=== PATIENT | male | born 1950 | race Caucasian/White ===

== ENCOUNTER → 2016-10-01 | Outpatient (CLI) | payer MEDICARE ==
[~2016-10-01] MED LIST: DEPAKOTE EXTEN500 MG PO; KEPPRA500 MG PO; THERAGRAN-M1 TAB PO; TYLENOL EXTRA500 MG PO; ZYLOPRIM100 MG PO
== END | disposition disaster alternative care site (69) ==
LOC: LGSMG 11:17
DX: R56.9 Unspecified convulsions (principal)

== ENCOUNTER 2016-12-11 18:20 | Inpatient (IN) | payer MEDICARE ==
[~2016-12-11] VITALS: Ht 190.5 cm; Wt 70.5 kg
--- NOTE | ~2016-12-11 | CON ---
PATIENT'S NAME: ROSENDO TRINH [facility] AGE: 66 Y [address] ROOM: [address] [place] [address] LOCATION: [facility] ADMIT DATE: 12/12/2016 Consultation DISCHARGE DATE: FAMILY PHYSICIAN: SIMBA MONTENEGRO MD ATTENDING PHYSICIAN: Gege Malik DATE OF CONSULTATION: 12/12/2016 REFERRING PHYSICIAN: BRENDA ALBARRAN MD TIME OF CONSULTATION: At 10:10 a.m. REASON FOR CONSULT: Right-sided hemiparesis. HISTORY OF PRESENT ILLNESS: This is a 66-year-old male, known to the Neurology Clinic for treatment of seizures. This 66-year-old, male, has a history of glioblastoma multiforme, status post excision and radiation with no apparent residual disease. He does have a slight residual aphasia. The patient presented to the Neurological Clinic today in a wheelchair with his family. I immediately examined him and his right side had literally no strength. He also had no fluent language skills and some word finding difficulties. These symptoms began 2 weeks ago. The patient was taken to MRI which did show a left posterior limb internal capsule stroke. The stroke appears ischemic and subacute. The patient was admitted to the hospital for an ischemic stroke workup. REVIEW OF SYSTEMS: All systems have been reviewed and are negative except for the positives as listed in the HPI. PAST MEDICAL HISTORY: 1. Gout. 2. Glioblastoma multiforme. 3. Seizures. SURGICAL HISTORY: Resection of a glioblastoma multiforme. CURRENT MEDICATIONS: 1. Allopurinol. 2. Depakote. 3. Keppra. PATIENT'S NAME: ROSENDO TRINH [facility] AGE: 66 Y [address] ROOM: [address] [place] [id number] LOCATION: [facility] ADMIT DATE: 12/12/2016 Consultation DISCHARGE DATE: FAMILY PHYSICIAN: SIMBA MONTENEGRO MD ATTENDING PHYSICIAN: Gege Malik SOCIAL HISTORY: The patient was a past smoker, but has no other toxic habits and lives with his . His daughter stays with them to help manage medications. FAMILY HISTORY: Reviewed and is noncontributory. PHYSICAL EXAMINATION: VITAL SIGNS: Temperature 97.7, pulse 57, respirations 12, blood pressure 122/70, and saturating 100% on room air. GENERAL: This appears as a well-developed, well-nourished, elderly male, in no acute distress. HEENT: Head is normocephalic and atraumatic. Pupils are equal and reactive to light and accommodation. LYMPHATIC: No cervical lymphadenopathy. LUNGS: Clear to auscultation. HEART: Regular with no murmurs, rubs, or gallops. NECK: No nuchal rigidity noted. No carotid bruits auscultated. GI: Abdomen is soft, nontender, and nondistended. VASCULAR: He has 2+ pedal pulses and venous staining bilaterally. His NIH stroke scale is as follows: Level of consciousness, 0. Current month and age, 1. Open and close eyes, 0. Best gaze, 0. Visual field testing, 0. Facial paresis, 1. Left arm, 0. Right arm, 2. Left leg, 0. Right leg, 1. Limb ataxia, 1. Sensory, 1. Language, 1. Dysarthria, 1. Extinction and inattention, 0, for a total Scale of 9. DIAGNOSTICS: The patient has had an MRI previous to admission to the hospital. The MRI demonstrated a small acute or subacute ischemic infarct in the posterior limb left and on internal capsule, which explains the right hemiparesis. There are other chronic changes of the left temporal tumor resection with a stable appearance, without evidence of tumor recurrence. ASSESSMENT AND PLAN: 1. Ischemic cerebrovascular accident. We will start an aspirin as there is no evidence of hemorrhage on this MRI. The patient had not been on any antithrombotic. We will get a lipid profile to evaluate and start statin therapy if needed. We will get an echocardiogram to evaluate his heart. We would like to get an MRA to look at the vessels in his heart. We will get a carotid ultrasound to evaluate for possible stenosis. We will involve Speech, PT, and OT to evaluate the patient and treat as necessary. We will get Dr. Henry to see the patient and value his input on rehabilitation. The evaluation and plan for this patient was developed with Dr. Oseguera. We would like to thank you for the opportunity to take care of this patient. PATIENT'S NAME: ROSENDO TRINH [facility] AGE: 66 Y [address] ROOM: [address] [place] [address] LOCATION: [facility] ADMIT DATE: 12/12/2016 Consultation DISCHARGE DATE: FAMILY PHYSICIAN: SIMBA MONTENEGRO MD ATTENDING PHYSICIAN: Gege Malik If you have any questions, please do not hesitate to ask us. KALI HINOJOSA APRN FOR LORETTA OSEGUERA MD PP/modl /[id number] d: 12/13/16 0137 t: 12/19/16 1743, CONSULTATION REPORT
--- NOTE | ~2016-12-11 | CON ---
PATIENT'S NAME: ROSENDO TRINH [facility] AGE: 66 Y [address] ROOM: [place] [address] LOCATION: [facility] ADMIT DATE: 12/12/2016 Consultation DISCHARGE DATE: FAMILY PHYSICIAN: SIMBA MONTENEGRO MD ATTENDING PHYSICIAN: Gege Malik REFERRING PHYSICIAN: BRENDA ALBARRAN MD A consult for Dr. Duval/Dr. Malik. HISTORY OF PRESENT ILLNESS: This pleasant, 66-year-old gentleman, who is at the present time, telling me that he lives alone and takes care of his needs. He was admitted on 12/11/2016 with right-sided weakness and right facial droop of about 2 weeks' duration. There is history of brain tumor, and possibly this is a recurrence ? History of focal seizures back in August 2016. Status post history of biopsy of glioblastoma multiforme. At that time, he had sudden onset of right hemiparesis which resolved spontaneously. 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 PHYSICAL EXAMINATION: Now, alert. Not well oriented to place, time and person. Can correct himself on and off with repeated cuing, but not easily. He has right facial droop, but his voice is clear and not wet, and he does not attend well to the right side also with right temporary visual neglect cut. Tongue and soft palate are moving symmetrical on both sides. Voice is clear and not wet. He has marked weakness of the right upper extremity and is also weak in the right lower extremity distally more than proximally, and dorsiflexors more than plantar flexes. Sensation is slightly decreased on the right side. Deep tendon reflexes are present, 1+ throughout. He has good bowel and bladder control so far. MEDICATIONS: He is, at the present time, on the following medications: 1. Aspirin. 2. Keppra. 3. Depakote. 4. Zofran. PATIENT'S NAME: ROSENDO TRINH [facility] AGE: 66 Y [address] ROOM: [address] [place] [id number] LOCATION: [facility] ADMIT DATE: 12/12/2016 Consultation DISCHARGE DATE: FAMILY PHYSICIAN: SIMBA MONTENEGRO MD ATTENDING PHYSICIAN: Gege Malik 5. Zyloprim. 6. Zofran. 7. Tylenol. ASSESSMENT AND PLAN: We will initiate on PT, OT, and speech. We will brace as needed, please see the orders. Also, we will start him on E-stimulation on specific muscles, please see the orders again. We will watch closely. When stable, provided he can tolerate intensive rehabilitation, I will take him to GIRP/rehab unit for intensive rehabilitation of about 3 to 4 weeks, aiming to discharge home at [facility]. Follow on outpatient basis. All the above was explained to him. He verbalized understanding and agreement. Thank you for this referral. He has been initiated on PT, OT, and speech. See the orders. MD GABRIELLA ARIASS/modl /[id number] d: 12/12/16 1640 t: 12/15/16 1222, CONSULTATION REPORT
--- NOTE | ~2016-12-11 | ECHO ---
Transthoracic Echocardiography Report (TTE) Demographics Patient Name ROSENDO TRINH Date of Study 12/15/2016 Patient Number [id number] Visit Number [id number] Date of 1950 Room Number G6228 Gender Male Number Age 66 year(s) Referring David Wood Silk Spotter Raisa Ordaz [place], Physician Osman Childers RVT PARTICIPANT ADMINISTRATOR Physician Interpreting Tamara Xavier MD Clinical Partner Physician Supervising Ordering Osman Childers MD/MLP Physician PARTICIPANT ADMINISTRATOR Nurse Stress Lvn Lpn Conclusions Contractility Score Summary Normal Left Ventricular contractility was noted. Summary The estimated left ventricular ejection fraction is 60%. Mild assymetric septal left ventricular hypertrophy. Diastolic assessment reveals Grade I diastolic dysfunction. The right atrium is mildly dilated. Procedure Type of Study TTE procedure:2D Echocardiogram. Procedure Date Date: 12/15/2016 Start: 11:39 AM Study Location: Inpatient Portable Technical Quality: Adequate visualization Indications:CVA. Appropriate Use Criteria: 9 Patient Status: Routine Contrast Medium: Bubble Study. Amount - 9 ml HR: 66 bpm BP: 107/62 mmHg M-Mode/2D Measurements LV Diastolic Dimension: 2.77 cm LV Systolic Dimension: 2.05 cm LV Septum Diastolic: 1.09 cm LV PW Diastolic: 0.95 cm Cardiac Output: 3.19 l/min LA Dimension: 2.7 cm LVOT: 2 cm LVOT VTI: 15.4 cm RV Base: 3.35 cm LV Stroke volume: 48.36 ml RV Length: 5.31 cm Doppler Measurements AV Peak Velocity: 0.87 m/s MV Peak E-Wave: 0.5 m/s AV Peak Gradient: 3.05 mmHg MV Peak A-Wave: 0.64 m/s AV Mean Gradient: 2 mmHg MV E/A Ratio: 0.79 LVOT Peak Velocity: 0.73 m/s MV Deceleration Time: 352 msec TR Velocity:1.5 m/s PV Peak Velocity: 0.71 m/s TR Gradient:9 mmHg PV Peak Gradient: 2.03 mmHg Estimated RAP:8 mmHg Estimated PASP: 17 mmHg Estimated RVSP: 17 mmHg A' Septal Velocity: 0.07 m/s E' Septal Velocity: 0.09 m/s A' Lateral Velocity: 0.13 m/s E' Lateral Velocity: 0.1 m/s Findings Left Ventricle Mild assymetric septal left ventricular hypertrophy. Diastolic assessment reveals Grade I diastolic dysfunction. Paradoxical septal motion abnormality Right Ventricle Normal right ventricle structure and function. Left Atrium Normal left atrial size. Informed consent was obtained, bubble study was done, there is no evidence for a PFO or ASD. Right Atrium The right atrium is mildly dilated. Mitral Valve Normal mitral valve structure and function. Aortic Valve Normal aortic valve structure and function. Tricuspid Valve Trivial tricuspid regurgitation by color Doppler. Pulmonic Valve Normal pulmonic valve structure and function. Pericardial Effusion No evidence of pericardial effusion. Miscellaneous Visualized portions of the aortic root and ascending aorta appear normal in size. Pleural Effusion No evidence of pleural effusion. Contractility Score LV regional wall motion:(0-Non visualized 1-Normal 2-Hypokinesis 3-Akinesis 4-Dyskinesis 5-Aneurysm) Signature dtt: Duc Mcdonald (cardio) dtd: 12/15/16 1139 Physician Self Edit
--- NOTE | ~2016-12-11 | CON ---
PATIENT'S NAME: ROSENDO CEDILLO [facility] AGE: 66 Y [address] ROOM: [address] [place] [id number] LOCATION: [facility] ADMIT DATE: 12/12/2016 Consultation DISCHARGE DATE: FAMILY PHYSICIAN: SIMBA MONTENEGRO MD ATTENDING PHYSICIAN: Gege Malik DATE OF CONSULTATION: 12/12/2016 REFERRING PHYSICIAN: BRENDA ALBARRAN MD TIME OF CONSULT: 2:25 p.m. REASON FOR CONSULT: Abnormal MRI and right-sided weakness. HISTORY OF PRESENT ILLNESS: Rosendo Cedillo is known to us from the outpatient clinic. He was seen last in August for a possible TIA. We were called by an outlying facility for recommendations on tPA. Because he had a glioblastoma in 2008, tPA was not given. Thankfully, the symptoms resolved shortly thereafter. 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 He had a history of seizures and was on Keppra and added Depakote at that time. Yesterday, he came into the neurology office and he was in a wheelchair. His daughter and the patient both state that he has not been able to move his right side well for over two weeks. The differential diagnosis at that time were either stroke or recurrence of the glioblastoma, so he was taken to MRI somewhat on an urgent basis. After the MRI was reviewed, it looked like a posterior limb left or an internal capsule ischemic area that was subacute. He was admitted to the hospital for workup of this stroke and to evaluate for what he needs as far as rehabilitation and therapies. It was noted the patient was somewhat aphasic and had difficulties with fluidity of language at the visit also. DICTATION ENDS HERE KALI HINOJOSA APRN FOR BRENDA ALBARRAN MD PP/modl /[id number] d: 12/12/16 2253 t: 12/28/16 1629, CONSULTATION REPORT
--- NOTE | ~2016-12-11 | CON ---
PATIENT'S NAME: ROSENDO CEDILLO [facility] AGE: 66 Y [address] ROOM: [address] [address] LOCATION: [facility] ADMIT DATE: 12/12/2016 Consultation DISCHARGE DATE: FAMILY PHYSICIAN: SIMBA MONTENEGRO MD ATTENDING PHYSICIAN: Gege Malik DATE OF CONSULTATION: 12/12/2016 REFERRING PHYSICIAN: BRENDA ALBARRAN MD I personally saw the patient Rosendo Cedillo on December 12, 2016 with nurse practitioner, Miriam Brewer via Telemedicine consultation. Dee portions of the history and examination were repeated. I agree with the discussed assessment and plan of care. MD ABRAHAM CONNELLY/modl /[id number] d: t: 12/15/16 0151, CONSULTATION REPORT
--- NOTE | ~2016-12-11 | DS ---
PATIENT'S NAME: ROSENDO TRINH [facility] AGE: 66 Y [address] ROOM: [address] [address] LOCATION: [facility] ADMIT DATE: 12/12/2016 Discharge Summary DISCHARGE DATE: 12/16/2016 FAMILY PHYSICIAN: Iris Hernandez MD ATTENDING PHYSICIAN: Gege Malik [facility]RSE: This 66-year-old male was admitted with a history of right- sided weakness that seems to have gotten worse over a 2-week period. Prior to that, he had had an episode in August, which was thought to be a TIA and he spontaneously recovered and then he had an episode where he had a seizure and following that, developed Nawaf's paralysis. However, for more than 2 weeks, he has not been able to use his right side very well. The right upper extremity had always been spastic mainly because of an old stroke and he also had some weakness in his right lower extremity. However, relevant portion of his past medical history is that he had a history of glioblastoma, which was excised in 2008. An MRI of the brain was done. The MRI showed an ischemic lesion in the posterior limb of the internal capsule on the left side. He had an episode where he was aphasic and he still has problems with expressive aphasia. While in the hospital, investigation was carried out including a cardiac echo, which was normal. He also had carotid duplex studies looking at his carotids bilaterally. There was no significant stenosis of the carotids. There was no evidence of tumor or recurrence. He was seen in consultation by Dr. Henry of Rehab Services who saw him and felt to be a good candidate to be admitted to inpatient rehab. While he was in the hospital, his neurological status was stable. He had no further deterioration. He was consequently transferred to inpatient rehab service for aggressive rehabilitation. DIAGNOSIS: Left hemisphere stroke involving primarily the posterior limb of the internal capsule. MD ERLINDA NULL/lauro /[id number] d: 12/29/16 0200 t: 01/15/17 1444, DISCHARGE SUMMARY
--- NOTE | ~2016-12-11 | ENPV ---
Carotid Duplex Study Demographics Patient Name ROSENDO TRINH Date of Study 12/12/2016 Patient Number [id number] Gender Male Date of 1950 Age 66 Visit Number [id number] Height 75 Accession Number [id number] Weight 157 Referring David Wood Interpreting Alessandro Saucedo MD Physician Osman Childers Physician CHILO Physician Ordering Physician Osman Childers Outsole Cutter Machine CHILO Metal Polisher And Buffer Apprentice Roberto Alejandro T Conclusions Summary Prior study done 09/09/16- Appears unchanged from prior study. The right internal carotid artery has mild, 1-39%, plaque and stenosis. The right vertebral artery is present with antegrade flow. The left internal carotid artery has mild, 1-39%, plaque and stenosis. The left vertebral artery is present with antegrade flow. Procedure Type of Study: Cerebral:Carotid, Carotid Doppler Bilateral. Indications for Study:Stroke. Appropriate Use Criteria:9 Patient Status:Routine. Study Location:Inpatient Portable. Technical Quality:Adequate visualization. Velocities are measured in cm/s ; Diameters are measured in cm Carotid Right Measurements Carotid Left Measurements + +--------+--------+ + + + +--------+ --------+ + + !Location !PSV !EDV !Angle !%Stenosis ! !Location !PSV ! EDV !Angle !%Stenosis ! + +--------+--------+ + + + +--------+ --------+ + + !Prox CCA !60 !13 !52 ! ! !Prox CCA !67 ! 18 !60 ! ! + +--------+--------+ + + + +--------+ --------+ + + !Dist CCA !62 !14 !60 ! ! !Dist CCA !76 ! 19 !60 ! ! + +--------+--------+ + + + +--------+ --------+ + + !Prox ICA !51 !19 !60 ! ! !Prox ICA !52 ! 16 !60 ! ! + +--------+--------+ + + + +--------+ --------+ + + !Dist ICA !66 !27 !60 ! ! !Dist ICA !61 ! 24 !60 ! ! + +--------+--------+ + + + +--------+ --------+ + + !Prox ECA !94 ! !60 ! ! !Prox ECA !74 ! !60 ! ! + +--------+--------+ + + + +--------+ --------+ + + !Vertebral !33 ! !52 ! ! !Vertebral !31 ! !60 ! ! + +--------+--------+ + + + +--------+ --------+ + + !Subclavian !38 ! ! ! ! !Subclavian !103 ! ! ! ! + +--------+--------+ + + + +--------+ --------+ + + - There is antegrade vertebral flow noted on the right side. - There is antegrade verte bral flow noted on the left side. - Add'l Measurements:Subclavian PRV 38 cm/sICAPSV/CCAPSV - Add'l Measurements:Subcl estella PRV 103 cm/sICAPSV/CCAPSV 1.11.ICAEDV/CCAEDV 2.08. 0.91.ICAEDV/CCAEDV 1.3. Impressions Right Impression There is a mild amount of smooth heterogeneous plaque in the right carotid bifurcation . Left Impression There is a mild amount of smooth calcified plaque in the left carotid bifurcation . Signature dtt: REGINA MONCADA dtd: 12/12/16 1134 Physician Self Edit
--- NOTE | ~2016-12-11 | HP ---
PATIENT'S NAME: ROSENDO CEDILLO [facility] AGE: 66 Y [address] ROOM: [place] [address] LOCATION: [facility] ADMIT DATE: 12/11/2016 History & Physical DISCHARGE DATE: FAMILY PHYSICIAN: SIMBA MONTENEGRO MD ATTENDING PHYSICIAN: Rosita Duval DATE OF SERVICE: 12/11/2016 Patient is referred by Stan Wren MD. REASON FOR REFERRAL: Possible recurrence of tumor. PATIENT IDENTIFICATION: Rosendo Cedillo is a 66-year-old male. PRESENTING COMPLAINTS: Right side weakness. HISTORY OF PRESENT ILLNESS: The patient developed right-sided weakness about 2 weeks ago. The details are not very clear as the patient has some word-finding difficulty, but it seems like the weakness came on suddenly about 2 weeks ago. The patient was seen by Neurology today and there was a question of possible recurrent tumor. The patient has a past history of tumor resection. I was therefore asked to see the patient because of this. The patient also has difficulty with speech and this is also since the weakness started 2 weeks ago. PAST MEDICAL HISTORY: The patient had craniotomy and resection of left temporal glioblastoma in 2008. He has done really well from his original brain tumor surgery. He does have episodes of seizure with residual weakness, however this weakness this time has persisted for up to two weeks and did not resolve like the other episodes that the patient had in the past. Other medical history includes gout. CURRENT MEDICATIONS: The patient takes: 1. Allopurinol. 2. Divalproex. 3. Keppra. PATIENT'S NAME: ROSENDO CEDILLO [facility] AGE: 66 Y [address] ROOM: [place] [address] LOCATION: [facility] ADMIT DATE: 12/11/2016 History & Physical DISCHARGE DATE: FAMILY PHYSICIAN: SIMBA MONTENEGRO MD ATTENDING PHYSICIAN: Rosita Duval ALLERGIES: PLEASE SEE CHART. SOCIAL HISTORY: The patient has family support. He came with a lady and the gentleman who are family members. REVIEW OF SYSTEMS: A 10-point review of systems was carried out. The only abnormal finding is occasional headaches, which the patient says they feel like his head is going to explode. FAMILY HISTORY: There is no family history relevant to present problems. PHYSICAL EXAMINATION: GENERAL: On examination, the patient is a middle-age gentleman, who was sitting on a wheelchair when I saw him. NEUROLOGIC: The patient has significant word-finding difficulty and sometimes his speech seems confused. Cranial nerves, The patient has a right facial weakness. Motor examination, the patient has right-sided weakness. He was not able to lift his right arm up or move his right leg. He moves the left side normally. Gait not tested. CARDIOVASCULAR: Heart sounds present. RESPIRATORY SYSTEM: The patient is not short of breath at bedside. EXTREMITIES: No cyanosis or clubbing. SKIN: No skin rashes or skin masses. HEENT: Head is atraumatic. Eyes and ears, no evidence of trauma. REVIEW OF IMAGING STUDIES: The patient has had a brain MRI performed today. The MRI shows some brain atrophy with resultant dilatation of the ventricles especially the frontal horn of the left lateral ventricle. There is also an encephalomalacia around the site of his previous tumor resection. There is no sign of tumor recurrence. The patient does have an infarct involving the internal capsule on the left side and this appears to be a subacute infarct. ASSESSMENT: A 66-year-old male with 2-week history of right-sided weakness. The patient has a past history of craniotomy for glioblastoma, but current imaging studies indicates possible left sided cerebrovascular accident. MEDICAL DECISION MAKING: PATIENT'S NAME: ROSENDO CEDILLO [facility] AGE: 66 Y [address] ROOM: [place] [address] LOCATION: [facility] ADMIT DATE: 12/11/2016 History & Physical DISCHARGE DATE: FAMILY PHYSICIAN: SIMBA MONTENEGRO MD ATTENDING PHYSICIAN: Rosita Duval The patient is being admitted for observation. We will get an official read of his MRI scan. He is going to need physical therapy, occupational therapy, and speech therapy for his present situation. There is no indication for neurosurgical intervention. The patient will also get a rehab consult to see if he will benefit from inpatient rehab. MD SAM GANO/lauro /[id number] CC: MD Chito Parkinson MD D: [id number] T: [id number] HISTORY & PHYSICAL
--- NOTE | 2016-12-12 01:54 | NUR ---
THE PATIENT CAME FROM DR. IVORY'S OFFICE FOR RIGHT SIDED WEAKNESS. HE HAD INCREASED RIGHT SIDED WEAKNESS AND N/T TO THE RIGHT SIDE FOR THE PAST TWO WEEKS. AT DR. IVORY'S OFFICE THEY DID A CT AND FOUND A STROKE THAT WAS ABOUT TWO WEEKS OLD. HE HAS NO KNOWN ALLERGIES. HX OF GLIOBLASTOMA, - 2008, COLON RESECTION DUE TO CANCER 2002, SEIZURES, GOUT, BPH, HX SMOKING - QUIT 1990, LEFT EAR [place]. HE WILL BE EVALUATED BY PT, OT, ST AND REHAB TOMORROW. SCDS TO BILATERAL CALFS.
--- NOTE | 2016-12-12 04:58 | NUR ---
Significant Event: A/OX2. DISORIENTED TO TIME. MOVES ALL EXTREMITIES SPONTEOUSLY AND TO COMMAND. RIGHT SIDED WEAKNESS NOTED. UPPER EXTREMITY WEAKER THAN LOWER EXTREMITY. N/T TO RIGHT SIDE OF BODY. SLURRED SPEECH. STROKE SCALE 8. UP HEAVY [address] AND REHAB TO EVALUATE TODAY. VSS ON ROOM AIR. NO COMPLAINTS OF PAIN. UNABLE TO GET IV THIS SHIFT. PATIENT WANTS TO BE A DNR - DR IVORY SAID WOULD ADDRESS TODAY. BM THIS SHIFT. REGULAR DIET. TAKES MEDS WHOLE IN APPLESAUCE. Follow up:
--- NOTE | 2016-12-12 14:30 | NUR ---
Introduced self and role of care management to pt. He states his stepped out and he is about ready to take a nap. 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 He had a hard time find words but was oriented. He states the last 2 weeks he has progressively gotten worse on the right side. He was using a walker and getting help from his family. At this time will try to see how he does with therapy and touch base with . Dr Malagon seen and is a good candidate but they are full and no beds until the end of next week.
--- NOTE | 2016-12-12 19:06 | NUR ---
Significant Event: PT ALERT; DISORIENTED TO PLACE. FORGETFUL. PERRLA. SLURRED SPEECH AND RESPONDS SLOW. R)SIDE REMAINS WEAK. TRANSFERS WITH 2-ASSIST/PIVOT. SAT IN THE CHAIR FOR MOST OF THE SHIFT. VITAL SIGNS STABLE; ON ROOM AIR. DENIES ANY PAIN. VOIDS PER URINAL. 2-D ECHO AND CAROTID DOPPLERS DONE THIS SHIFT. TAKES MEDICATIONS WHOLE IN APPLESAUCE. REGULAR DIET. NO BM THIS SHIFT. NIH-SS= 8 THIS SHIFT. REFUSED MRA OF BRAIN TO BE DONE THIS AFTERNOON; KIM HINOJOSA APRN FOR NEUROLOGY WAS NOTIFIED; NO NEW ORDERS WERE GIVEN. Follow up: TRANSFER TO [facility] WHEN MEDICALLY READY?
--- NOTE | 2016-12-13 05:16 | NUR ---
A&O. Right sided weakness. Slurred speech. BM 12/12. Uses urinal. 2 assist with gaitbelt and quad cane. Dim bases. RA. Right foot drop boot. IV R AC SL. Takes meds whole in applesauce or pudding.
--- NOTE | 2016-12-13 16:36 | NUR ---
Significant Event: A/O X3, difficulty word finding at times, slurred speech, NIHSS=9, R)side numbness/weak, R)foot drop boot, ambulates in room x2, 2 assist/quad cane. refuses RUE sling, voids, scant BM today, good appetite, R)AC saline lock, Follow up: plan for [facility] when ready next week
--- NOTE | 2016-12-14 04:52 | NUR ---
Significant Event: Patient A/O x 3. Expressive aphasia. Word finding difficulties. R)side facial droop. NIHSS=9 this shift. Moves left side without difficulty. Wiggles index finger on right hand. Weak RLE. Follows commands. N/T to right extremities. PERRLA. Denies pain. Ambulates 2 Assist. Ambulated to bathroom and back to bed this shift with quad cane. Foot drop boot to RLE intact. SCDs intact. No edema. Afebrile. Hypotensive this shift. SBP= 90s-100s this shift. Regular diet. Takes meds whole. PIV to right AC SL. BM this shift. Follow up: [facility] sometime this week.
--- NOTE | 2016-12-14 14:17 | NUR ---
Significant Event: A/O X3, difficulty word finding at times, 2 assist/gait belt/platform walker, ambulates in room with PT, showered, voids without difficulty, BM today, R)AC saline lock, NIHSS= 9, R) sided weakness, refuses RUE sling, R)mouth droop, wiggles R)fingers, numbness/tingling to R)side. good appetite, meds whole in applesauce. Follow up: [facility]IR[facility] when ready,
--- NOTE | 2016-12-15 02:56 | NUR ---
Significant Event: Patient is alert and oriented x 3. Denies pain. Numbness and tingling to right side. Expressive aphasia and problems with word finding. NIHSS-9. Mouth droop, right arm no effort against gravity, right leg drift, ataxia, slurring, aphasia, decreased sensation. NIHSS 9. PERRL. Moves left side without difficulty. Wiggles index finger on right hand. RLE is weaker. Follows commands. 2PA, gait belt, platform walker. Foot drop boot to right. SCDs intact. Afebrile. Regular diet with good appetite. Takes medications one at a time in applesauce. IV to right AC SL with no complications. Bowel sounds active. No BM this shift. Incontinent of urine this shift. Follow up: [facility] when bed available, activity, NIHSS
--- NOTE | 2016-12-15 13:20 | NUR ---
Significant Event: PT ALERT; DISORIENTED TO PLACE. FORGETFUL. PERRLA. NUMBNESS/TINGLING REMAIN TO R)SIDE. R)SIDE IS WEAK; NO EFFORT AGAINST GRAVITY TO R)ARM, R)LEG DRIFT/ABLE TO WIGGLE TOES. ATAXIA NOTED AND DECREASED SENSATION. STROKE SCALE 9 THIS SHIFT. EXPRESSIVE APHASIA/PROBLEMS WITH WORD FINDING. 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 TRANSFERS WITH 2-ASSIST/GAIT BELT/PLATFORM WALKER. HAS AMBULATED TO THE BATHROOM THIS SHIFT. BAG BATH GIVEN THIS AM. VITAL SIGNS STABLE; ON ROOM AIR. DENIES ANY PAIN. INCONTINENT URINE; DOES USE URINAL AT TIMES. BILATERAL CALF PUMPS ON. R)FOOT DROP BOOT ON. TAKES MEDICATIONS WHOLE WITH APPLESAUCE. IV TO R)AC SALINE LOCKED. REGULAR DIET; ABLE TO FEED SELF. SMALL BM THIS SHIFT. REFUSES TO WEAR R)ARM SLING. 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
--- NOTE | 2016-12-15 13:27 | NUR ---
I did call Anastasia this am to see about acute rehab beds and she stated they can take pt tomorrow. I then went and spoke with pt and asked if his family was here but they are not. I explained we can get him to acute rehab tomorrow. I did tell him we can look at any rehabs if he would like or we can just keep him here and work with him. He states he is fine staying here. I did tell him it will either be private or semi private and he states that is fine. I then called his and discussed dc plans and she stated he was independent prior to all of this. I told her our acute rehab can take him tomorrow for intensive rehab or I can look anywhere they would like. She states that sound fine. I did tell her it is on 2nd floor of the main part of the hospital and it will either be semiprivate or private and she is fine with this. I then spoke with her friend on the phone Joe Newsome. HE states she has her own health issues and he has been helping her out. He was concerned about the bills. I explained we can get them a financial application but it looks like pt does not have a secondary so I recommended them to look into a supplemental and also if more questions go to [facility] in the area for questions. I did tell them Anastasia will be following when he moves so to be in touch with her if any further questions.
--- NOTE | 2016-12-16 03:36 | NUR ---
Significant Event: Patient is alert and oriented x 3. Denies pain. Numbness and tingling to right side. Expressive aphasia and problems with word finding. NIHSS-9. Mouth droop, right arm no effort against gravity, right leg drift, ataxia, slurring, aphasia, decreased sensation. PERRL. Moves left side without difficulty. Wiggles index finger on right hand. RLE is weaker. Follows commands. 2PA, gait belt, platform walker. Foot drop boot to right. SCDs intact. Afebrile. Regular diet with good appetite. Takes medications one at a time in applesauce. IV to right AC SL with no complications. Bowel sounds active. No BM this shift. Incontinent of urine this shift. Follow up: [facility]IRP after 10 am, activity, NIHSS
--- NOTE | 2016-12-16 16:37 | NUR ---
Significant Event: Patient's v/s stable. Alert and orientated x2, aphasic, stroke scale of 9. Patient has slight movement to right upper extremity, weak right lower extremity. Patient on room air, lungs are clear. Incont of urine. Bowel movement 12/15. Regular diet. Right foot drop boot. 2 assist, gait belt, platform walker. Denies pain. Follow up: Patient to [facility] at 1411.
== END 2016-12-16 14:11 | DRG 65 ==
LOC: GNTU 18:33
PROVIDERS: ADMIT Neurological Surgery
PROC: B246ZZZ Ultrasonography of Right and Left Heart (ICD-10-PCS; principal; 2016-12-15)
DX: I63.9 Cerebral infarction, unspecified (principal); G81.91 Hemiplegia, unspecified affecting right dominant side; R47.01 Aphasia; R53.1 Weakness; Z92.3 Personal history of irradiation; Z85.841 Personal history of malignant neoplasm of brain
CPT/HCPCS: G0378; G0379

== ENCOUNTER → 2016-12-11 | Outpatient (CLI) | payer MEDICARE ==
[2016-12-11 16:17] LABS: ANION GAP 12.6 (10.0-19.0); BLOOD UREA NITROGEN 17 mg/dL (6-24); CALCIUM 8.6 mg/dL (8.5-10.5); CHLORIDE 105 mMol/L (96-110); CO2 29 mMol/L (22-32); CREATININE 0.9 mg/dL (0.6-1.3); ESTIMATED GFR (MDRD EQUATION) > 60; POTASSIUM 3.6 mMol/L (3.7-5.1); SODIUM 143 mMol/L (135-145)
== END | disposition disaster alternative care site (69) ==
LOC: GRAD 15:20
PROVIDERS: Nurse Practitioner Family
DX: G81.91 Hemiplegia, unspecified affecting right dominant side (principal)

== ENCOUNTER 2016-12-16 14:27 | Inpatient (IN) | payer MEDICARE ==
[~2016-12-16] VITALS: Ht 190.5 cm; Wt 71.2 kg
--- NOTE | ~2016-12-16 | CON ---
PATIENT'S NAME: ROSENDO CEDILLO [facility] AGE: 66 Y [address] ROOM: [id number] [place], [place] [address] LOCATION: [facility] ADMIT DATE: 12/16/2016 Consultation DISCHARGE DATE: FAMILY PHYSICIAN: SIMBA MONTENEGRO MD ATTENDING PHYSICIAN: Chip Henry DATE OF CONSULTATION: 01/17/2017 REFERRING PHYSICIAN: Gege Malik MD The patient was seen at 10 a.m. on 01/17/2017 at the request of Dr. Henry. HISTORY OF PRESENT ILLNESS: Mr. Cedillo is a 66-year-old male patient who has been here in our hospital since November of this year on rehab. Neurology was called to assess the patient for the possibility that he was having more neurologic symptoms and that he was having some nauseousness, difficulty in keeping down food, and potentially being less communicative than normally. Mr. Cedillo cannot give me a history as he has severe aphasia. By the record he had a left tumor resected back in 2008 and this was found to be a glioblastoma multiforme. Post surgery, he had radiation, and apparently over the course of time, there has been no recurrence of the tumor. The extent of his aphasia associated with this tumor and resection was noted in prior notes and was likely to be at least moderate. He had some difficulty in getting out words and name finding, but really back earlier this year in August when he came in with an acute onset of focal right-sided weakness, it is then when he had more difficulty with his speech. At that time, he presented with complete right hemiparesis. This being in the setting of a likely seizure with Nawaf paralysis. He did eventually get more of his power back on his right side, and the patient apparently did well. He was discharged on 2 antiseizure medications, being Keppra and valproic acid. He came back to the hospital on December 12, 2016, due to the family's concern that his aphasia had gotten much worse from its baseline. This time he was seen by Miriam Brewer, nurse practitioner, in Neurology Clinic. She noted that the patient had complete hemiparesis on his right side. This was a complete change from his discharge back in August where he had regained his power after the apparent seizure. Miriam Brewer ordered an MRI, and the MRI showed evidence of a likely subacute stroke as DWI was not strongly positive, probably suggestive of a stroke at least a week to 2 weeks prior. It did not seem to be associated with his admission back in August as the DWI would not have remained positive into November. This stroke was quite debilitating. It left him with severe aphasia and complete inability to use his right upper extremity. He remains flaccid with his right arm and cannot move his right leg. Furthermore, this stroke was located in the descending white matter tracts of the internal capsule and also affecting the left basal ganglia. Basal ganglia strokes are often associated with aphasia, which is likely why the patient had new onset of severe aphasia very different than the prior aphasia that he had due to the PATIENT'S NAME: ROSENDO CEDILLO [facility] AGE: 66 Y [address] ROOM: [place] [address] LOCATION: [facility] ADMIT DATE: 12/16/2016 Consultation DISCHARGE DATE: FAMILY PHYSICIAN: SIMBA MONTENEGRO MD ATTENDING PHYSICIAN: Chip Henry. Furthermore, due to the location of the stroke, it caused him to have much more difficulty with swallowing, also slowing down of his motor skills due to the basal ganglia type stroke and more difficulty with swallowing. A swallow evaluation showed that he could not take liquids, again diet was appropriate with caution. After this stroke, he went to the rehab floor and he has been here ever since. I am seeing the patient today. He is alerting. He answers questions with yes and no answers and seems to understand basic discussion, but does not elaborate more than 1 to 2 words. He did not have an orientation to day, time, or date. Did his best to try to answer questions concerning orientation. His speech was severely slurred and his language was discoordinated. Otherwise he looked in no acute distress and he appeared comfortable. He did not appear to be sick and he was not having any nauseousness or recent vomiting events. PRIOR MEDICAL HISTORY: Glioblastoma multiforme, resected 2008. MRI followup since this tumor resection has remained good with no recurrence of any tumor. He presented in August with a focal seizure and Nawaf paralysis on his right side and that resolved and he came back to normal with his power. His aphasia was only mild to perhaps moderate at the time in August. Unfortunately, in November he developed a new severe right-sided weakness with worsening of his aphasia from baseline. An MRI was repeated in November which showed a subacute stroke associated with a basal ganglia infarct on the left. This is the reason for the patient having a severe aphasia, difficulty with swallowing. Neurologic workup at that time did not show any significant stenosis of the carotids. He has been on rehab since his admission for this new stroke. The patient does seem to dissipate in rehab services. The concern here was some more nauseousness and vomiting as of the past few days. CURRENT MEDICATIONS: Include: 1. Divalproex 500 mg p.o. b.i.d. 2. Levetiracetam 1000 mg twice a day. 3. Aspirin 81 mg daily. 4. Allopurinol 200 mg daily. 5. Atorvastatin 80 mg p.o. daily, started today. 6. Sertraline 50 mg p.o. q.a.m. 7. Pantoprazole 40 mg p.o. daily. SOCIAL HISTORY: Prior to this admission, he was living alone. He is . He does not smoke. He does not drink alcohol. FAMILY HISTORY: Noncontributory here. PATIENT'S NAME: ROSENDO CEDILLO [facility] AGE: 66 Y [address] ROOM: [place] [address] LOCATION: [facility] ADMIT DATE: 12/16/2016 Consultation DISCHARGE DATE: FAMILY PHYSICIAN: SIMBA MONTENEGRO MD ATTENDING PHYSICIAN: Chip Henry REVIEW OF SYSTEMS: The patient neurologically, had a left frontal parietal tumor resected, found to have a glioblastoma, has had post radiation therapy for this. Had only some mild aphasia resulting from this tumor and some mild weakness, right upper extremity. However, developed a new stroke sometime in November of this year which left him with very severe aphasia, difficulty with chewing and swallowing, complete right hemiparesis. At baseline, he is at risk for seizures due to the tumor and presented with a focal seizure of his right upper extremity in August. He has not had any seizures since that time. PHYSICAL EXAMINATION: The patient is sitting upright in bed. He is alerting to persons in the room. He has a tendency to look towards his left visual field. He does neglect his right side. He does not activate his right upper extremity or his right lower extremity. He moves his left arm and left leg on command and is able to follow commands to check motor power. His cranial nerves II through XII are normal. Right upper and lower extremity power cannot really be tested. He does not move his right side and he does not maintain his right arm elevated. His left- sided power is full and he does participate in testing. He has 5/5 grade power with normal bulk and tone. He cannot participate in further testing. He withdraws to pain on his left. IMPRESSION: Mr. Cedillo had the sequela of a severe aphasia which developed from a left basal ganglia stroke in November. These types of strokes can progress to having difficulty with swallowing since they do give parkinsonian like features of slow motility of his muscles of swallowing. He does not have any drooling or hypersalivation. Unfortunately, his aphasia is severe and will not necessarily improve with time a whole lot. He did seem to be quite depressed with his situation. Though he can actively participate in the physical exam, I sense depressive features were preventing him from participating in testing of his speech. I discussed with the patient the importance of considering an antidepressant and this is common issue with persons who have had a left brain event. He has had 2 brain issues, one being a large tumor resected and the other being a stroke in the similar area. It is odd, but not strange to have a stroke right around the area of the tumor resection. I believe that his stroke was related to acceleration of small-vessel ischemic changes due to radiation to his brain for the tumor. Radiation is known to cause some endothelial dysfunction though his carotid circulation on the left is clear without stenosis, it is impossible to know the condition of the intima of small vessels. Thus, the patient has been appropriately placed on Lipitor 80 mg daily and aspirin 81 mg daily. Lipitor should aid in plaque stabilization and endothelial healing, probably would protect him long-term from recurrent strokes, but is not guaranteed. I do not see any reason for the patient to PATIENT'S NAME: ROSENDO CEDILLO [facility] AGE: 66 Y [address] ROOM: [id number] [place], [place] [address] LOCATION: [facility] ADMIT DATE: 12/16/2016 Consultation DISCHARGE DATE: FAMILY PHYSICIAN: SIMBA MONTENEGRO MD ATTENDING PHYSICIAN: Carl,Chip M have any further neurologic workup. A recent CAT scan was done and it shows no evidence of any new strokes, but does show the hypodensity associated with the recent stroke in November located in the basal ganglia. I would recommend the patient be put on a proton pump inhibitor for now. Glycopyrrolate if he has issues with hypersalivation. MD CYNDIE DE JESUS/lauro /[id number] d: 01/17/172 t: 01/28/17 1738, CONSULTATION REPORT
--- NOTE | ~2016-12-16 | CON ---
PATIENT'S NAME: ROSENDO TRINH [facility] AGE: 66 Y [address] ROOM: [address] [address] LOCATION: [facility] ADMIT DATE: 12/16/2016 Consultation DISCHARGE DATE: FAMILY PHYSICIAN: SIMBA MONTENEGRO MD ATTENDING PHYSICIAN: Chip Cano DATE OF CONSULTATION: 01/13/2017 REFERRING PHYSICIAN: Gege Malik MD Team members reporting include Dr. Cano; Anastasia Lancaster, social work nurse; Brianna Molina, RN; Cyndy Mendoza, PT; Antonia Arriaga, PT; Latoya Locke, OT; Consuelo Ochoa, Speech Therapy; Funmilayo Castro, therapeutic rec; and Sister Fifi Montemayor, Pastoral Care. CURRENT STATUS: Rosendo is a 66-year-old man admitted to our inpatient rehab unit following a CVA. The patient has been noted today to be choking on his own saliva. They did do a modified barium swallow and now he is on nectar thickened liquids. The patient's prealbumin is 17 which is down from 18. They did add Ensure pudding at lunch and Magic cup at dinner to provide additional nutrients. The patient can transfer sit to supine and supine to sit at standby; sit to stand and stand to sit, contact guard assistance to standby assistance; and bed to chair and chair to bed, contact guard assistance. He can ambulate 150 feet at contact guard assistance overall and can climb 8 stairs with one railing at contact guard assistance. He has met 4/4 short-term PT goals. The patient's upper body dressing is anywhere from standby assistance to moderate assistance; lower body dressing, max to dependent; grooming, standby; bathing, minimal assistance; toilet and shower transfers, minimal assistance; toileting, minimal to dependent; and feeding, standby assistance. He has met 1/5 short-term OT goals. Comprehension is at minimal to standby. Language and expression, max assistance. Memory, max assistance. Car transfers are currently minimal to moderate assistance. The patient is open to pastoral care. Pharmacy did ask about his medications. The patient is able to swallow them with lots of extra time. We will continue with fat plan. DISCHARGE PLAN: The patient is receiving 3 hours of PT, OT, and Speech Thursday through Thursday. The patient has daily rehab, nursing, and physiatry involvement as well as therapeutic recreational services 4 days per week. The patient has shown functional improvement and is progressing. Please see his plan of care for specific goals. Plan is for the patient to discharge to a skilled level of care when able. Planning to do a family meeting to discuss the patient's changes and discharge planning. PATIENT'S NAME: ROSENDO [facility] AGE: 66 Y [address] ROOM: [place] [address] LOCATION: [facility] ADMIT DATE: 12/16/2016 Consultation DISCHARGE DATE: FAMILY PHYSICIAN: SIMBA MONTENEGRO MD ATTENDING PHYSICIAN: Chip Cano ANASTASIA LANCASTER FOR CHIP CANO MD TD/modl /[id number] d: 01/19/177 t: 02/06/17 1242, CONSULTATION REPORT
--- NOTE | ~2016-12-16 | HP ---
PATIENT'S NAME: ROSENDO TRINH [facility] AGE: 66 Y [address] ROOM: [place] [address] LOCATION: [facility] ADMIT DATE: 12/16/2016 History & Physical DISCHARGE DATE: FAMILY PHYSICIAN: Iris Hernandez MD ATTENDING PHYSICIAN: Althea Cano DATE OF SERVICE: HISTORY OF PRESENT ILLNESS: This 66-year-old gentleman is admitted to rehab unit at [facility] on 12/16/2016: 1. Unstable gait. 2. Dependent activities of daily and self-care. 3. Status post right hemiplegia secondary to CVA. Right upper extremity more involved with disorientation. He has also right facial droop and difficulty with speech. This patient has past history significant of glioblastoma multiforme, status post excision and radiation with no apparent recurrence so far. He did have a similar episode 3 days prior to the last admission, which was on 09/09 and that recovered of which he did well. He has also on seizure precautions and he felt that this time was similar to seizure episodes; however, that has not been documented and witnessed. The patient was a smoker in distant past and no other issues. PHYSICAL EXAMINATION: GENERAL: He is at the present time alert and fairly not oriented to time. He is at the present time, alert and able to follow instructions. VITALS SIGNS: Are as follows on admission: Blood pressure 100/68, temperature 97.7, pulse is 70, respirations rate is 16. He is 6 feet 3 inches tall and weighs 70.5 kg. HEENT: Head, normocephalic with some mild right facial droop. Tongue and soft palate are moving symmetrically, however, tongue right side is moving slightly slower. He can swallow at the present time. NECK: Supple. Trachea is central. CHEST: Moving equally. LUNGS: Clinically clear. HEART: Regular sinus rhythm. NEUROLOGICAL: He seems to be intact throughout except for the weakness of the right upper and lower extremity, right upper extremity more involved. ALLERGIES: PATIENT'S NAME: ROSENDO TRINH [facility] AGE: 66 Y [address] ROOM: [place] [address] LOCATION: [facility] ADMIT DATE: 12/16/2016 History & Physical DISCHARGE DATE: FAMILY PHYSICIAN: Iris Hernandez MD ATTENDING PHYSICIAN: Althea Cano NO KNOWN DRUG ALLERGIES. HE IS ON SEIZURE PRECAUTIONS. MEDICATIONS: He is on the following medications. 1. Zyloprim 200 mg p.o. daily. 2. Aspirin 81 mg p.o. daily. 3. Lipitor 80 mg at bedtime. 4. Depakote 500 mg twice daily. 5. Colace 100 mg b.i.d. 6. Keppra 1500 mg twice daily. 7. Theragran-M 1 tablet p.o. daily. 8. Sodium chloride IV 250 mL bag per protocol as needed. 9. Tylenol 650 every 4 to 6 hours as needed do not exceed acetaminophen 4 g every 24 hours. 10. Dulcolax 10 mg rectally p.r.n. as needed. DIAGNOSTIC DATA: On MRI on 12/11/2016 showed a small acute subacute ischemic infarct in the posterior limb of the left and on internal capsule part of the brain with right hemiparesis. RECOMMENDATIONS AND PLAN: 1. At the present time, we will go ahead and put him on intensive PT, OT, speech 3 hours per day, 15 hours per week, aiming to discharge on modified in about 3 to 4 weeks. 2. We will keep on regular consistency diet as tolerated. 3. We will send in a.m. for labs CBC, CMS, and urinalysis. 4. On 11/17, his vitals were as follows:. Blood pressure 98/69, temperature 97.8, pulse 73 regular, respiration rate 16. 1. CBC: White BC 3.9, RBC 4.16, hemoglobin 12.4, hematocrit 35.3, and platelets 112. 2. CMS: Sodium 137, potassium 4.1, chloride 100, CO2 29, BUN 16, creatinine 0.7, and glucose 85. Prealbumin 23.0%. ASSESSMENT AND PLAN: He is able to ambulate about 45 feet with front-wheeled walker, but still slow and disoriented to the place, requires cuing. 1. We will put on intensive with therapy as I mentioned with seizure precautions PT and OT and Speech. 2. We will keep on Dr. Duval, Dr. Malik, Dr. Wren, and hospitalist to follow as necessary. All the above was explained to him. He verbalized PATIENT'S NAME: ROSENDO TRINH [facility] AGE: 66 Y [address] ROOM: [place] [address] LOCATION: [facility] ADMIT DATE: 12/16/2016 History & Physical DISCHARGE DATE: FAMILY PHYSICIAN: Iris Hernandez MD ATTENDING PHYSICIAN: Althea Cano understanding and agreement. ALTHEA CANO MD WMS/modl /[id number] D: T: HISTORY & PHYSICAL
--- NOTE | ~2016-12-16 | CON ---
PATIENT'S NAME: ROSENDO TRINH [facility] AGE: 66 Y [address] ROOM: [place] [address] LOCATION: [facility] ADMIT DATE: 12/16/2016 Consultation DISCHARGE DATE: FAMILY PHYSICIAN: SIMBA MONTENEGRO MD ATTENDING PHYSICIAN: Chip Henry REFERRING PHYSICIAN: Gege Malik MD CHIEF COMPLAINT: Ischemic stroke. HISTORY OF PRESENT ILLNESS: The patient is a 66-year-old gentleman with past medical history of glioblastoma, status post resection and radiation, currently on remission per notes, and seizure, who presents here with CVA. The patient was initially admitted to our hospital on December 12 with right upper extremity and right lower extremity weakness. MRI showed he had small acute or subacute ischemic infarct in posterior limbs and anterior capsule on the left side. The patient was seen by Physical Therapy, and it was recommended that the patient to be admitted to our acute rehab for further physical therapy. Of note, the patient has expressive aphasia, and most of the information is gathered from the chart. The patient has a history of glioblastoma and had resection in 2008 and radiation. He has residual aphasia and some right upper extremity weakness. The patient also has a seizure disorder and is on Keppra. MEDICAL HISTORY: 1. Glioblastoma, status post resection and radiation. 2. Seizure. 3. CVA. SURGICAL HISTORY: Glioblastoma of left temporal, status post resection. FAMILY HISTORY: Unable to fully obtain as the patient has significant expressive aphasia. SOCIAL HISTORY: Unable to fully assess due to the patient's ongoing aphasia. MEDICATIONS: Please see MAR. REVIEW OF SYSTEMS: Unable to fully assess due to the patient's expressive aphasia. PHYSICAL EXAMINATION: PATIENT'S NAME: ROSENDO TRINH [facility] AGE: 66 Y [address] ROOM: [place] [address] LOCATION: [facility] ADMIT DATE: 12/16/2016 Consultation DISCHARGE DATE: FAMILY PHYSICIAN: SIMBA MONTENEGRO MD ATTENDING PHYSICIAN: Chip Henry VITAL SIGNS: Temperature 98.1, blood pressure 99/67, pulse of 75, respiratory rate of 16. GENERAL APPEARANCE: The patient is lying in his bed comfortably, in no acute distress. HEAD: Normocephalic, atraumatic. EYES: Sclerae non-icterus. No discharge. EARS: No ear discharge. ORAL: Moist mucosa. CHEST: Clear to auscultation bilaterally. HEART: Regular rate and rhythm. No murmur, rubs, or gallops. ABDOMEN: Soft, nontender, and nondistended. Bowel sounds present. SKIN: Warm to touch. No obvious lesion noted. MUSCULOSKELETAL: Range of motion intact. No obvious effusion. GENERAL EXPEDITOR: The patient has significant expressive aphasia. The patient has difficulty naming objects. The patient is able to read. ASSESSMENT AND PLAN: 1. CVA, recent MRI shows small acute or subacute ischemic infarct in posterior limbs and anterior capsule on the left side. The patient currently is on aspirin and statin. Continue medication. Blood pressure is normotensive. 2. Continue physical therapy and occupational therapy. 3. Seizure, on Keppra. No active seizure noted recently. 4. Glioblastoma, status post resection and radiation. Currently, in remission per notes. 5. Physical deconditioning. PT and OT. Thank you for involving me in the care of this patient. SAMIR JOLLY MD AD/modl /[id number] d: 12/16/16 2342 t: 12/19/16 1544, CONSULTATION REPORT
--- NOTE | ~2016-12-16 | DS ---
PATIENT'S NAME: ROSENDO TRINH [facility] AGE: 66 Y [address] ROOM: [id number] [place], [place] [address] LOCATION: [facility] ADMIT DATE: 12/16/2016 Discharge Summary DISCHARGE DATE: 01/21/2017 FAMILY PHYSICIAN: Iris Hernandez MD ATTENDING PHYSICIAN: Althea Cano [facility] COURSE: This 66-year-old gentleman was admitted to rehab unit at [facility] [place], [place] and on 12/16/2016, is discharged to go to [facility] for end-of-life care and on 01/21/2017. He was admitted with unstable gait. Dependent on activities of daily and self-care. Status post hemiplegia involving the right side with difficulty with expressive language and swallowing. During his stay with us, he made some progress; however, lately for about 10 days or so, he has progressively got into more difficulty with his expressive language and also with his swallowing, being unable to really keep up the pace with PT, OT, and Speech. We did consult the neurologist, details are on record and in fact, there is no real change in management that the neurologist could offer. We did have also a team conference including myself and all team members with the family members and we explained everything to them and answered their questions to full as possible. It was decided that the patient will be taken to [facility] end- of-life care. He is at the present time with the following vitals: Blood pressure 104/76, temperature 98.1, pulse 83, respiratory rate 18. MEDICATIONS: He is on the following medications: 1. Prevacid 10 mL as needed. 2. Zyloprim 200 mg p.o. daily. 3. Aspirin 81 mg p.o. daily. 4. Lipitor 80 mg p.o. at bedtime. 5. Depakote 500 mg twice daily. 6. Docusate sodium 100 mg twice daily. 7. Theragran-M 1 tablet p.o. daily. 8. Zoloft 50 mg in the morning. 9. Keppra 1000 mg 10 mL twice daily p.o. PATIENT'S NAME: ROSENDO TRINH [facility] AGE: 66 Y [address] ROOM: [place] [address] LOCATION: [facility] ADMIT DATE: 12/16/2016 Discharge Summary DISCHARGE DATE: 01/21/2017 FAMILY PHYSICIAN: Iris Hernandez MD ATTENDING PHYSICIAN: Althea Cnao 10. Sodium chloride 250 IV as needed per protocol. 11. Tylenol 650 q.6 hours, 36 of them, do not exceed acetaminophen 4 g q.24 hours. 12. Dulcolax 10 mg rectally p.r.n. 13. Zofran 4 mg q.4 hours p.r.n. FINAL DIAGNOSES: 1. Unstable gait. 2. Dependent on activities of daily and self-care. 3. 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 4. Expressive aphasia with difficulty with swallowing. 5. Depression. 6. Glioblastoma multiforme, status post surgical excision per history. 7. Gout. 8. Dyslipidemia. 9. The patient is not to follow with me. He should follow with his local doctor. 10. He will do PT, OT, and Speech as tolerated and according to the decision of the local physician. 11. Follow up with Dr. Malik as he sees fit. All the above was explained to him and his family. They verbalized understanding and agreement with plan of care. ALTHEA CANO MD WMS/modl /[id number] d: 01/22/17 0604 t: 01/23/17 0808, DISCHARGE SUMMARY
--- NOTE | ~2016-12-16 | CON ---
PATIENT'S NAME: ROSENDO TRINH [facility] AGE: 66 Y [address] ROOM: [address] [address] LOCATION: [facility] ADMIT DATE: 12/16/2016 Consultation DISCHARGE DATE: FAMILY PHYSICIAN: SIMBA MONTENEGRO MD ATTENDING PHYSICIAN: Chip Cano DATE OF CONSULTATION: 12/16/2016 REFERRING PHYSICIAN: Gege Malik MD Team members reporting include Dr. Cano; Anastasia Lancaster, 7th grade social studies teacher; Genesis Ribeiro, RN; Cyndy Mendoza, PT; Antonia Arriaga, PT; Caryl Dee, OT; Consuelo Ochoa, Speech Therapy; Funmilayo Catsro, therapeutic rec; and Sister Fifi Babb, Pastoral Care. CURRENT STATUS: Rosendo is a 66-year-old man who admitted to our inpatient rehab unit on December 16, 2016. The patient was admitted to [facility] following an ischemic infarct in the posterior limb, left, and on internal capsule. The patient does have right hemiparesis. The patient has a history of a glioblastoma multiforme, status post resection and radiation; history of seizures. The patient does have expressive aphasia. Due to the time of the patient's admission, not many consults were able to be done prior to case conference meeting. We will meet again next week to discuss the patient's progress, goals, and discharge planning. ANASTASIA LANCASTER FOR CHIP CANO MD TD/aracelyl /[id number] d: 12/23/16 1138 t: 02/06/17 1232, CONSULTATION REPORT
--- NOTE | ~2016-12-16 | CON ---
PATIENT'S NAME: ROSENDO TRINH [facility] AGE: 66 Y [address] ROOM: [address] [address] LOCATION: [facility] ADMIT DATE: 12/16/2016 Consultation DISCHARGE DATE: FAMILY PHYSICIAN: SIMBA MONTENEGRO MD ATTENDING PHYSICIAN: Chip Cano DATE OF CONSULTATION: 12/30/2016 REFERRING PHYSICIAN: Gege Malik MD Team members reporting include Dr. Cano; Anastasia Lancaster, director of social services; Genesis Ribeiro, RN; Antonia Arriaga, PT; Cyndy Mendoza, PT; Latoya Locke, OT; Consuelo Ochoa, Speech Therapy; Funmilayo Castro, therapeutic rec; and Sister Fifi Montemayor, Pastoral Care. CURRENT STATUS: Rosendo is a 66-year-old man admitted to our inpatient rehab unit on December 16, 2016, following a CVA. The patient is incontinent of bowel and bladder. No skin issues. Does complain of shoulder pain at times. He can transfer sit to supine at contact guard assistance; supine to sit, minimal assistance; sit to stand, minimal to moderate assistance; and bed to chair and chair to bed, minimal assistance. He can ambulate 75 feet at moderate assistance using a quad cane. Stairs have not been done yet. In the past, he was able to do 12 stairs with one railing at minimal to contact guard assistance. He has met 0 short-term PT goals. The patient can dress his upper body at minimal assistance; lower body, max assistance; grooming, standby; bathing, minimal assistance; toilet and shower transfers, minimal to moderate assistance; toileting is dependent to moderate assistance with incontinences; feeding is standby. He has met 0/6 short-term OT goals. The patient's comprehension is at minimal assistance; language, moderate to max assistance; memory, max assistance; problem solving, max assistance; and swallowing, standby. The patient is able to complete SUV transfers at contact guard assistance. He has been very open to pastoral care, prayer, and support. No pharmacy concerns. Dr. Cano did order a CT scan for him as the patient is having more difficulty this date. DISCHARGE PLAN: The patient is receiving 3 hours of PT, OT, and speech Thursday through Thursday. The patient has daily rehab, nursing, and physiatry involvement as well as therapeutic recreational services 4 days per week. The patient has shown functional improvement and is progressing. Please see his plan of care for specific goals. Plan is for the patient to discharge in approximately 2 to 3 weeks. Plan is for the patient to return to home if possible. PATIENT'S NAME: ROSENDO TRINH [facility] AGE: 66 Y [address] ROOM: [address] [address] LOCATION: [facility] ADMIT DATE: 12/16/2016 Consultation DISCHARGE DATE: FAMILY PHYSICIAN: SIMBA MONTENEGRO MD ATTENDING PHYSICIAN: Chip Cano ANASTASIA LANCASTER FOR CHIP CANO MD TD/modl /[id number] d: 01/05/17 1336 t: 02/06/17 1235, CONSULTATION REPORT
--- NOTE | ~2016-12-16 | CON ---
PATIENT'S NAME: ROSENDO TRINH [facility] AGE: 66 Y [address] ROOM: [address] [address] LOCATION: [facility] ADMIT DATE: 12/16/2016 Consultation DISCHARGE DATE: 01/21/2017 FAMILY PHYSICIAN: Iris Hernandez MD ATTENDING PHYSICIAN: Chip aCno DATE OF CONSULTATION: 01/20/2017 REFERRING PHYSICIAN: Gege Malik MD Team members reporting include Dr. Cano; Anastasia Lancaster, director social; Lory Linton, RN; Cyndy Mendoza, PT; Antonia Arriaga, PT; Latoya Locke, OT; Consuelo Ochoa, Speech Therapy; Funmilayo Castro, therapeutic rec; and Sister Fifi Babb, Pastoral Care. CURRENT STATUS: Rosendo is a 66-year-old man, admitted to our inpatient rehab unit on December 16, 2016, following a CVA. The patient has a history of a brain tumor. He is incontinent of bowel and bladder. He has redness in his groins. No pain issues. The patient has had a decline in his swallowing. He is on a pureed diet, nectar thickened liquids, 1500 mL fluid restriction. Palliative consult was noted. Diet consistency has changed. He is to have Ensure pudding twice a day and Magic cup daily. Prealbumin is 8, down from 17. Dietitian is recommending enteral nutrition; however, the patient is refusing this at this time. He can complete all of his transfers at contact guard assistance to standby assistance. He can ambulate 50 to 150 feet at standby assistance to minimal assistance using a quad cane. He can climb 8 stairs with one railing at contact guard assistance to standby assistance. He is dependent for upper and lower body dressing. He is dependent for grooming and bathing, moderate assistance for toilet transfers, max assistance for shower transfers, dependent for toileting. Feeding is standby to dependent. He has met 0 short- term OT goals. The patient's comprehension is max to moderate assistance. Language and expression minimal to standby. Memory max to moderate assistance. Problem solving max to moderate assistance. The patient overall has regressed with his swallowing. He has a lot more fatigue and is weaker. The patient's car transfers are currently contact guard assistance to minimal assistance. DISCHARGE PLAN: The patient is receiving 3 hours of PT, OT, and Speech Thursday through Thursday. The patient has daily rehab, nursing, and physiatry involvement as well as therapeutic recreational services 4 days per week. The patient has shown functional decline. The plan is for the patient to discharge soon. The patient would like to go to [facility] with comfort care services noted for end of life. PATIENT'S NAME: ROSENDO TRINH [facility] AGE: 66 Y [address] ROOM: [id number] [place], [place] [address] LOCATION: [facility] ADMIT DATE: 12/16/2016 Consultation DISCHARGE DATE: 01/21/2017 FAMILY PHYSICIAN: Iris Hernandez MD ATTENDING PHYSICIAN: Chip Cano ANASTASIA LANCASTER FOR CHIP CANO MD TD/modl /[id number] d: 02/06/17 2321 t: 02/23/17 1412, CONSULTATION REPORT
--- NOTE | ~2016-12-16 | CON ---
PATIENT'S NAME: ROSENDO TRINH [facility] AGE: 66 Y [address] ROOM: [place] [address] LOCATION: [facility] ADMIT DATE: 12/16/2016 Consultation DISCHARGE DATE: FAMILY PHYSICIAN: SIMBA MONTENEGRO MD ATTENDING PHYSICIAN: Chip Cano DATE OF CONSULTATION: 01/06/2017 REFERRING PHYSICIAN: Gege Malik MD Team members reporting include Dr. Cano; Anastasia Lancaster, manager social work; Genesis Ribeiro, RN; Antonia Arriaga, PT; Cyndy Mendoza, PT; Funmilayo Castro, therapeutic rec; Sister, Fifi Mccann, Pastoral Care. CURRENT STATUS: Rita Harrington is a 66-year-old man, admitted to our inpatient rehab unit on December 16, 2016, following a CVA. He does have a history of a glioblastoma. The patient is incontinent of both bowel and bladder. He is on a regular diet. Intake is 50% to 100%. Currently, at low nutritional risk. His prealbumin is within normal limits. He can transfer sit to supine at contact guard assistance; supine to sit, minimal assistance; sit to stand and stand to sit, minimal to contact guard assistance; and bed to chair, contact guard assistance. He is walking anywhere from 50 to 75 feet using a quad cane. Minimal assistance overall. He does use an AFO and a front-wheeled walker occasionally. He can climb 8 stairs with one railing at contact guard assistance to minimal assistance. He has met 1/4 short-term PT goals. The patient can dress his upper body at standby; lower body, minimal assistance; grooming standby; bathing, minimal assistance; shower transfers, minimal assistance; and toileting, contact guard assistance. His right upper extremity is weaker. He is getting E-Stim and tape to his right upper extremity. Dr. Cano did do an order for a CT scan. He has met 1/6 short- term OT goals. Comprehension is at minimal assistance. Language and expression, max to moderate assistance; memory, max assistance; and problem solving, max assistance. Car transfers are currently at contact guard assistance. He does have difficulty with word finding, increased reading problems, difficulty hearing. The patient has been open to pastoral cares. No pharmacy concerns. DISCHARGE PLAN: The patient is receiving 3 hours of PT, OT, and speech Thursday through Thursday. The patient has daily rehab, nursing, and physiatry involvement as well as therapeutic rec services 4 days per week. The patient has shown functional improvement and is progressing. Please see his plan of care for specific goals. Plan is for the patient to discharge in approximately 7-10 days. We are looking at a halfway facility. PATIENT'S NAME: ROSENDO TRINH [facility] AGE: 66 Y [address] ROOM: [address] [place] [address] LOCATION: [facility] ADMIT DATE: 12/16/2016 Consultation DISCHARGE DATE: FAMILY PHYSICIAN: SIMBA MONTENEGRO MD ATTENDING PHYSICIAN: Chip Cano ANASTASIA LANCASTER FOR CHIP CANO MD TD/modl /[id number] d: 01/19/171940 t: 02/06/17 1240, CONSULTATION REPORT
--- NOTE | ~2016-12-16 | CON ---
PATIENT'S NAME: ROSENDO TRINH [facility] AGE: 66 Y [address] ROOM: [place] [address] LOCATION: [facility] ADMIT DATE: 12/16/2016 Consultation DISCHARGE DATE: FAMILY PHYSICIAN: SIMBA MONTENEGRO MD ATTENDING PHYSICIAN: Chip Cano DATE OF CONSULTATION: 12/23/2016 REFERRING PHYSICIAN: Gege Malik MD Team members reporting include Dr. Cano; Anastasia Lancaster, social sciences chair; Genesis Ribeiro, RN; Antonia Arriaga, PT; Cyndy Mendoza, PT; Latoya Locke, OT; Consuelo Ochoa, Speech Therapy; Funmilayo Castro, therapeutic rec; and Sister Fifi Montemayor, Pastoral Care. CURRENT STATUS: Rita Harrington is a 66-year-old man, admitted to our inpatient rehab unit following a CVA. The patient is incontinent of bladder at times. He is currently getting bladder training. He is on a regular diet, not currently at nutritional risk. He can transfer sit to supine at standby assistance and supine to sit at contact guard assistance; bed to chair and chair to bed is at contact guard assistance using a quad cane. He can walk 50 feet using a Bart Walker at contact guard assistance to minimal assistance. He can climb 8 stairs with one railing at minimal assistance and [id number] cuing. The patient can dress his upper body at standby; lower body minimal assistance; grooming standby; bathing minimal assistance; toilet and shower transfers, minimal assistance; toileting minimal assistance; and feeding, standby assistance. He is having movement throughout his right arm. He has met 3/6 short-term OT goals. The patient's comprehension is at minimal assistance. Language and expression, minimal assistance. Memory and problem solving, max assistance. Swallowing is currently at standby. The patient is working on his facial muscles. He does have some drooling. He needs cueing to swallow. He is getting E-stimulation to his face as well. He can complete car transfers at contact guard assistance using a slide board. DISCHARGE PLAN: The patient is receiving 3 hours of PT, OT, and speech Thursday through Thursday. The patient has daily rehab, nursing, and physiatry involvement as well as therapeutic recreational services 4 days per week. The patient has shown functional improvement and is progressing. Please see his plan of care for specific goals. Plan is for patient to discharge in approximately 3 to 4 weeks. Plan is for patient to return to home if possible with his . PATIENT'S NAME: ROSENDO TRINH [facility] AGE: 66 Y [address] ROOM: [address] [place], [place] [address] LOCATION: [facility] ADMIT DATE: 12/16/2016 Consultation DISCHARGE DATE: FAMILY PHYSICIAN: SIMBA MONTENEGRO MD ATTENDING PHYSICIAN: Chip Cano FOR CHIP CANO MD TD/modl /[id number] d: 01/05/17 1343 t: 02/06/17 1237, CONSULTATION REPORT
--- NOTE | ~2016-12-16 | CON ---
PATIENT'S NAME: ROSENDO TRINH [facility] AGE: 66 Y [address] ROOM: [place] [address] LOCATION: [facility] ADMIT DATE: 12/16/2016 Consultation DISCHARGE DATE: FAMILY PHYSICIAN: SIMBA MONTENEGRO MD ATTENDING PHYSICIAN: Chip Henry DATE: 01/20/2017 PALLIATIVE CARE CONSULT LOCATION: [place] [address]. REFERRING PHYSICIAN: Chip Henry MD REASON FOR CONSULTATION: This is a palliative care referral for patient and family support and goals of care with the patient's recent decline. 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 He had right facial droop and difficulty speaking. He has a known history of glioblastoma multiforme, post excision and radiation with no apparent reoccurrence, that was excised in 2008. The patient had been working with the rehab unit and started to decline. He was seen by the neurological clinic, which showed left posterior limb internal capsule stroke, that appeared ischemic and subacute. The patient had been improving and recently was showing a decline, was more nauseated, having more difficulty with dysphagia. Speech therapy had been seeing, and was aspirating on thin liquids. He had been declining to do all therapies and sleeping a lot and a decline in his status. Palliative Care was consulted to assist with goals of care. PAST MEDICAL HISTORY: Glioblastoma, status post resection and radiation in 2008; seizures; and CVA. PAST SURGICAL HISTORY: Glioblastoma of left temporal, status post resection; left craniotomy in 2008; colon resection in 2002; appendectomy; tonsillectomy; right arm tumor removed as a child; and excision of skin cancer on his nose. FAMILY HISTORY: Father had a stroke, diabetic, at the age of 80. Mother had lupus, at age of 31. Son has heart problems, tachycardia. PATIENT'S NAME: ROSENDO TRINH [facility] AGE: 66 Y [address] ROOM: [place] [address] LOCATION: [facility] ADMIT DATE: 12/16/2016 Consultation DISCHARGE DATE: FAMILY PHYSICIAN: WIRGES, SIMBA A MD ATTENDING PHYSICIAN: Chip Henry ALLERGIES: NO KNOWN ALLERGIES. SOCIAL HISTORY: He is . He has a son and a daughter. Prior to admission, he was living alone. He does not smoke and does not drink. REVIEW OF SYSTEMS: PSYCH: He does make some comments of being depressed. He had been on Lexapro, was recently changed to Zoloft due to decrease in sodium level. EXTREMITIES: The patient complains of pain in his feet radiating up to his lower calf from time to time, comes and goes. A complete review of systems was done and is negative except as mentioned in the HPI and above. PHYSICAL EXAMINATION: GENERAL: This is a 66-year-old frail male, appears older than stated age. VITAL SIGNS: Temp 97.9, pulse 82, respirations 15, blood pressure 110/65, O2 saturation is 98%. He is 6 feet 3 inches, weighs 156 pounds with a BMI of 20.2. GENERAL: Alert and oriented. He has some aphasia, worse in the afternoons, in no acute distress. SKIN: Warm and dry. Color very pale. HEENT: Head: Normocephalic, atraumatic. Sclerae nonicteric. Conjunctivae are pale and pink. Mouth is pink and moist without exudate. LYMPH: No cervical adenopathy or thyromegaly. RESPIRATORY: Clear to auscultation bilaterally. Breath sounds even and regular throughout. CARDIAC: S1, S2 with regular rate and rhythm. No bruits or JVD. No lower extremity edema. ABDOMEN: Soft, nondistended. Positive bowel tones. No hepatosplenomegaly. Last bowel movement was on 01/19/2017. NEURO: Grossly intact with right-sided hemiplegia. He is able to move left leg but decreased strength in left leg and left arm. Palliative Performance scale is 40% mainly in bed, unable to do most activity, total care, intake is reduced, conscious level is drowsy, level of consciousness is full. MUSCULOSKELETAL: No swelling edema or redness noted in right leg and foot. IMPRESSION: Dysphagia, weakness, fatigue, lack of appetite, depression. PLAN: 1. Family meeting was held with Anastasia, social services designee; Dr. Henry, rehab physician; daughter, Nadeem; and her , Jose Cruz; son, Jamie; and PATIENT'S NAME: ROSENDO TRINH [facility] AGE: 66 Y [address] ROOM: [id number] [place], [place] [address] LOCATION: [facility] ADMIT DATE: 12/16/2016 Consultation DISCHARGE DATE: FAMILY PHYSICIAN: SIMBA MONTENEGRO MD ATTENDING PHYSICIAN: Chip Henry his , Ivory; and Kathy, ; and speech therapy; physical therapy; and OT. Discussion of current condition and progress with all therapies and Dr. Henry discussing CVA and possibility of getting better. 2. Discussed issues of dysphagia, possible needing of feeding tube, not getting enough nutrition through oral intake and possibly aspirating on thin liquids. The patient declined feeding tube. Discussed goals of care and the patient's wishes. The patient states "I am just done." Asked what he meant by done, and he stated he just wants to go, "this is no life." Discussed wishes to go. Discussed care post hospital and current needs with the patient's hemiplegia. The patient discussed that could not handle him at home. He would probably need to go to an assisted living or to a alf for enough care and he would be on comfort cares with hospice/palliative care. 3. Recommendations: nausea, possibly related to thick phlegm. Encouraged the patient to drink more fluids, if possible take Zofran p.r.n. Pain in feet, the patient has Tylenol p.r.n. ordered. Answered questions on comfort care hospice. The patient states he wants go on comfort cares and hospice, eat what he wants and no feeding tube. CODE STATUS AND ADVANCE DIRECTIVE: A copy of advance directive is on the chart. Discussed code status regarding patient wanting to be just make comfortable. The patient states, "I do not want CPR or a ventilator." Anastasia, social services designee, discussed looking into [facility] and possible transfer by ambulance, possibly tomorrow to help let family get things in place. Family is in agreement with the patient's wishes. Information faxed to hospice and [facility]. If the patient goes to the hospital may need to go under palliative care. If the patient goes to a alf could do hospice in the alf. Reviewed medications. May consider take away nonessential medications like medications for hypercholesterolemia and vitamins to decrease amount that medications the patient have to swallow and any other nonessential medicines. Total time of consult was 65 minutes with education on comfort cares, hospice, goals of care, and code status. Thank you for allowing me to assist with this patient and family. JACQUES ADAM LOOP TACKER FOR MD YEMI BLOUNT/lauro PATIENT'S NAME: ROSENDO TRINH [facility] AGE: 66 Y [address] ROOM: [place] [address] LOCATION: [facility] ADMIT DATE: 12/16/2016 Consultation DISCHARGE DATE: FAMILY PHYSICIAN: SIMAB MONTENEGRO MD ATTENDING PHYSICIAN: Chip Henry /[id number] d: 01/20/177 t: 01/28/17 1558, CONSULTATION REPORT
[2016-12-17 06:07] LABS: BASOPHIL % 0.5 %; EOSINOPHIL # 0.3 K/uL (0.0-0.5); HEMATOCRIT 35.3 % (37.0-53.0); HEMOGLOBIN 12.4 g/dL (11.0-16.0); IMMATURE GRANULOCYTE % 0.3 %; LYMPHOCYTE # 1.2 K/uL (0.8-4.0); LYMPHOCYTE % 30.2 %; MCH 29.8 pg (27.0-34.0); MCHC 35.1 gm/dL (32.0-36.5); MCV 84.9 fl (83.0-98.0); MONOCYTE # 0.2 K/uL (0.0-1.0); MONOCYTE % 5.4 %; MPV 12.2 fl (9.4-12.4); NEUTROPHIL # (ANC) 2.2 K/uL (1.4-9.0); NEUTROPHIL % 56.6 %; NRBC % 0 /100WBC (0-0.00); PLATELET COUNT 112 K/uL (150-450); RBC 4.16 M/uL (3.50-5.50); RDW-CV 13.3 % (11.9-14.6); WBC 3.9 K/uL (4.0-11.0)
[2016-12-17 06:25] LABS: ALK PHOS 53 IU/L (33-138); ALT 30 IU/L (12-78); ANION GAP 12.1 (10.0-19.0); AST 25 IU/L (10-40); BLOOD UREA NITROGEN 16 mg/dL (6-24); CALCIUM 8.1 mg/dL (8.5-10.5); CHLORIDE 100 mMol/L (96-110); CO2 29 mMol/L (22-32); CREATININE 0.7 mg/dL (0.6-1.3); ESTIMATED GFR (MDRD EQUATION) > 60; POTASSIUM 4.1 mMol/L (3.7-5.1); SODIUM 137 mMol/L (135-145); TOTAL BILIRUBIN 0.4 mg/dL (0.0-1.5); TOTAL PROTEIN 6.2 g/dL (6.0-8.4)
[2016-12-29 06:30] LABS: ALBUMIN 2.8 gm/dL (3.5-5.0); ALK PHOS 61 IU/L (33-138); ALT 40 IU/L (12-78); ANION GAP 9.2 (10.0-19.0); AST 30 IU/L (10-40); BLOOD UREA NITROGEN 10 mg/dL (6-24); CHLORIDE 99 mMol/L (96-110); CO2 29 mMol/L (22-32); CREATININE 0.6 mg/dL (0.6-1.3); ESTIMATED GFR (MDRD EQUATION) > 60; POTASSIUM 4.2 mMol/L (3.7-5.1); SODIUM 133 mMol/L (135-145); TOTAL PROTEIN 5.6 g/dL (6.0-8.4)
[2016-12-29 06:37] LABS: TOTAL BILIRUBIN 0.3 mg/dL (0.0-1.5)
[2017-01-05 06:32] LABS: ALK PHOS 58 IU/L (33-138); ALT 31 IU/L (12-78); ANION GAP 8.2 (10.0-19.0); AST 25 IU/L (10-40); BLOOD UREA NITROGEN 10 mg/dL (6-24); CALCIUM 8.1 mg/dL (8.5-10.5); CHLORIDE 96 mMol/L (96-110); CO2 30 mMol/L (22-32); CREATININE 0.6 mg/dL (0.6-1.3); ESTIMATED GFR (MDRD EQUATION) > 60; POTASSIUM 4.2 mMol/L (3.7-5.1); SODIUM 130 mMol/L (135-145); TOTAL BILIRUBIN 0.3 mg/dL (0.0-1.5); TOTAL PROTEIN 5.8 g/dL (6.0-8.4)
[2017-01-08 05:35] LABS: ANION GAP 8.2 (10.0-19.0); BLOOD UREA NITROGEN 11 mg/dL (6-24); CHLORIDE 94 mMol/L (96-110); CO2 29 mMol/L (22-32); CREATININE 0.6 mg/dL (0.6-1.3); ESTIMATED GFR (MDRD EQUATION) > 60; POTASSIUM 4.2 mMol/L (3.7-5.1); SODIUM 127 mMol/L (135-145)
[2017-01-09 05:44] LABS: ALBUMIN 2.8 gm/dL (3.5-5.0); ALK PHOS 54 IU/L (33-138); ALT 29 IU/L (12-78); ANION GAP 7.4 (10.0-19.0); AST 24 IU/L (10-40); BLOOD UREA NITROGEN 9 mg/dL (6-24); CALCIUM 7.7 mg/dL (8.5-10.5); CHLORIDE 95 mMol/L (96-110); CO2 31 mMol/L (22-32); CREATININE 0.7 mg/dL (0.6-1.3); ESTIMATED GFR (MDRD EQUATION) > 60; POTASSIUM 4.4 mMol/L (3.7-5.1); SODIUM 129 mMol/L (135-145); TOTAL BILIRUBIN 0.3 mg/dL (0.0-1.5); TOTAL PROTEIN 5.5 g/dL (6.0-8.4)
[2017-01-12 06:16] LABS: ALK PHOS 60 IU/L (33-138); ALT 27 IU/L (12-78); ANION GAP 10.4 (10.0-19.0); AST 24 IU/L (10-40); BLOOD UREA NITROGEN 12 mg/dL (6-24); CALCIUM 8.2 mg/dL (8.5-10.5); CHLORIDE 96 mMol/L (96-110); CO2 29 mMol/L (22-32); CREATININE 0.7 mg/dL (0.6-1.3); ESTIMATED GFR (MDRD EQUATION) > 60; POTASSIUM 4.4 mMol/L (3.7-5.1); SODIUM 131 mMol/L (135-145); TOTAL PROTEIN 5.9 g/dL (6.0-8.4)
[2017-01-12 06:18] LABS: TOTAL BILIRUBIN 0.4 mg/dL (0.0-1.5)
[2017-01-13 05:07] LABS: ALBUMIN 3.1 gm/dL (3.5-5.0); ALK PHOS 57 IU/L (33-138); ALT 28 IU/L (12-78); ANION GAP 10.4 (10.0-19.0); AST 22 IU/L (10-40); BLOOD UREA NITROGEN 10 mg/dL (6-24); CHLORIDE 94 mMol/L (96-110); CO2 30 mMol/L (22-32); CREATININE 0.7 mg/dL (0.6-1.3); ESTIMATED GFR (MDRD EQUATION) > 60; POTASSIUM 4.4 mMol/L (3.7-5.1); SODIUM 130 mMol/L (135-145); TOTAL BILIRUBIN 0.4 mg/dL (0.0-1.5); TOTAL PROTEIN 5.8 g/dL (6.0-8.4)
[2017-01-14 04:29] LABS: ALBUMIN 2.9 gm/dL (3.5-5.0); ALK PHOS 47 IU/L (33-138); ALT 22 IU/L (12-78); ANION GAP 9.3 (10.0-19.0); AST 21 IU/L (10-40); BLOOD UREA NITROGEN 9 mg/dL (6-24); CALCIUM 8.1 mg/dL (8.5-10.5); CHLORIDE 95 mMol/L (96-110); CO2 30 mMol/L (22-32); CREATININE 0.6 mg/dL (0.6-1.3); ESTIMATED GFR (MDRD EQUATION) > 60; POTASSIUM 4.3 mMol/L (3.7-5.1); SODIUM 130 mMol/L (135-145); TOTAL PROTEIN 5.8 g/dL (6.0-8.4)
[2017-01-14 04:31] LABS: TOTAL BILIRUBIN 0.6 mg/dL (0.0-1.5)
[2017-01-19 05:38] LABS: BASOPHIL % 0.1 %; EOSINOPHIL % 0.2 %; HEMATOCRIT 37.1 % (37.0-53.0); HEMOGLOBIN 13.1 g/dL (11.0-16.0); IMMATURE GRANULOCYTE # 0.1 K/uL (0.0-0.3); IMMATURE GRANULOCYTE % 0.4 %; LYMPHOCYTE # 0.9 K/uL (0.8-4.0); LYMPHOCYTE % 5.7 %; MCH 30.5 pg (27.0-34.0); MCHC 35.3 gm/dL (32.0-36.5); MCV 86.3 fl (83.0-98.0); MONOCYTE # 0.8 K/uL (0.0-1.0); MONOCYTE % 5.3 %; MPV 10.6 fl (9.4-12.4); NEUTROPHIL # (ANC) 13.8 K/uL (1.4-9.0); NEUTROPHIL % 88.3 %; NRBC % 0 /100WBC (0-0.00); PLATELET COUNT 134 K/uL (150-450); RDW-CV 13.9 % (11.9-14.6); WBC 15.6 K/uL (4.0-11.0)
[2017-01-19 06:01] LABS: ALBUMIN 2.8 gm/dL (3.5-5.0); ALK PHOS 60 IU/L (33-138); ALT 34 IU/L (12-78); ANION GAP 9.1 (10.0-19.0); AST 22 IU/L (10-40); BLOOD UREA NITROGEN 20 mg/dL (6-24); CALCIUM 8.8 mg/dL (8.5-10.5); CHLORIDE 94 mMol/L (96-110); CO2 31 mMol/L (22-32); CREATININE 0.9 mg/dL (0.6-1.3); ESTIMATED GFR (MDRD EQUATION) > 60; POTASSIUM 4.1 mMol/L (3.7-5.1); SODIUM 130 mMol/L (135-145); TOTAL PROTEIN 6.6 g/dL (6.0-8.4)
[2017-01-19 06:04] LABS: TOTAL BILIRUBIN 0.8 mg/dL (0.0-1.5)
[2017-01-20 05:35] LABS: BASOPHIL % 0.2 %; EOSINOPHIL # 0.2 K/uL (0.0-0.5); EOSINOPHIL % 1.7 %; HEMATOCRIT 31.4 % (37.0-53.0); IMMATURE GRANULOCYTE % 0.3 %; LYMPHOCYTE # 0.8 K/uL (0.8-4.0); LYMPHOCYTE % 8.8 %; MCH 30.6 pg (27.0-34.0); MCV 87.2 fl (83.0-98.0); MONOCYTE # 0.6 K/uL (0.0-1.0); MONOCYTE % 7.4 %; MPV 10.6 fl (9.4-12.4); NEUTROPHIL % 81.6 %; NRBC % 0 /100WBC (0-0.00); PLATELET COUNT 122 K/uL (150-450); WBC 8.6 K/uL (4.0-11.0)
== END 2017-01-21 11:00 | disposition swing bed (61) | DRG 65 ==
LOC: GIRP 14:27
PROVIDERS: Internal Medicine; Nurse Practitioner Family; Physician Assistant; ADMIT Physical Medicine & Rehabilitation
PROC: F00ZJWZ Instrumental Swallowing and Oral Function Assessment using Swallowing Equipment (ICD-10-PCS; principal; 2016-12-17)
DX: I63.9 Cerebral infarction, unspecified (principal); G81.91 Hemiplegia, unspecified affecting right dominant side; R56.9 Unspecified convulsions; G83.84 Todd's paralysis (postepileptic); Z74.2 Need for assistance at home and no other household member able to render care; Z74.1 Need for assistance with personal care; Z87.891 Personal history of nicotine dependence; Z51.5 Encounter for palliative care; R47.01 Aphasia; R13.11 Dysphagia, oral phase; R13.13 Dysphagia, pharyngeal phase; Z92.3 Personal history of irradiation; F32.9 Major depressive disorder, single episode, unspecified; M10.9 Gout, unspecified; E78.5 Hyperlipidemia, unspecified
CPT/HCPCS: J2543; J3370; J7050; Q0162